=== PATIENT | male | born 1990 ===

== ENCOUNTER 2023-04-12 18:12 | Emergency (ER) | payer BC, SELFPAY ==
[2023-04-12 18:40] VITALS: BP 145/80; PULSE 70; RESP 16; TEMP 36.6; O2SAT 97; BMI 27.9
--- NOTE | 2023-04-12 19:24 | ED.SKABFB ---
HPI - Skin/Abscess/Foreign Bdy General Chief complaint: Skin/Abscess/Foreign Body Stated complaint: stepped on a nail, needs tetanus Time Seen by Provider: 04/12/23 18:45 Source: patient Mode of arrival: ambulatory Limitations: no limitations History of Present Illness HPI narrative: This is a 33-year-old male without significant medical history presenting with puncture wound with jose l nail through shoe with puncture wound to distal aspect of 2nd toe. Happened today prior to arrival. Patient tells me he is not sure when he had his last tetanus shot. Although records state he had in 2019 he tells me he is not sure he actually did. Patient denies fevers, chills, chest pain, shortness of breath, nausea, vomiting, difficulty moving toes, numbness or tingling. Related Data Previous Rx's Medication Instructions Recorded levofloxacin 750 mg tablet 750 mg PO DAILY 7 days #7 tabs 04/12/23 Allergies Allergy/AdvReac Type Severity Reaction Status Date / Time No Known Allergies Allergy Unverified 08/11/20 16:27 Review of Systems Review of Systems: Constitutional : No Weight loss, No Fever, No Chills, No Fatigue, No Malaise ENT/Mouth : No sore throat, No Rhinorrhea Eyes: No Eye Pain, No Swelling, No Redness Cardiovascular : No Chest Pain, No SOB, No Dyspnea on Exertion, No Orthopnea, No Edema, No Palpitations Respiratory : No Cough, No Sputum, No Wheezing Gastrointestinal : No Nausea, No Vomiting, No Diarrhea, No Constipation, No abdominal Pain, No Hematochezia, No Melena Genitourinary : No Dysuria, No Urinary Frequency, No Hematuria, Musculoskeletal : No joint pain, No Myalgias, No Joint Swelling Skin : No Skin Lesions, No rash, + puncture wound Neuro : No Weakness, No Numbness, No Dizziness, No Headache Psych : No Anxiety/Panic, No Depression All other systems reviewed and are negative Yes all other systems are reviewed and are negative [facility] Past Medical History Attestation statement: The following information was validated with the patient. Source: old records reviewed and nursing notes reviewed Physical Exam Vital Signs: Vital Signs: Last Vital Signs Temp 97.9 F 04/12/23 18:40 Pulse 70 04/12/23 18:40 Resp 16 04/12/23 18:40 BP 145/80 H 04/12/23 18:40 Pulse Ox 97 04/12/23 18:40 O2 Del Method Room Air 04/12/23 18:40 BMI result Body Mass Index 27.9 Vital signs stable Appearance: Alert.? Oriented X3.? No acute distress.? Head: Normocephalic, atraumatic, no step-offs or deformities Eyes: Pupils equal, round and reactive to light.? ENT: Pharynx normal.? Neck: Normal inspection.? Neck supple.? CVS: Normal heart rate and rhythm.? Pulses normal.? Respiratory: No respiratory distress.? Breath sounds normal.? Abdomen: Soft and nontender.? Skin: Skin warm and dry.? Normal skin color.? Normal skin turgor.?+ small puncture wound to the left 2nd toe distal aspect on fat pad. +dorsalis pedis, anterior tibialis and posterior tibialis pulses equal bilateral. No footdrop. Ambulating with steady straight gait normal coordination Extremities: No lower extremity edema.? No calf ttp. 5/5 strength to bilateral upper and lower extremities Back: No midline tenderness, no C-spine tenderness, full range of motion, no CVA tenderness bilaterally Neuro: Oriented X 3.? No motor deficit.? No sensory deficit. CN 2-12 intact Course Reevaluation(s) Reevaluation #1: Patient given medication and Boostrix shot therefore he will be discharged home. Time: 19:27 Medical Decision Making Medical Decision Making MDM Narrative: 33-year-old male presents with puncture wound, patient stepped on a jose l nail that went through his shoe and punctured his 2nd toe just prior to arrival Physical exam with puncture wound distal aspect of 2nd left toe. Vascular status intact. Concerns for puncture wound, unlikely cellulitis, necrotizing infection, no signs of threatened limb. Plan will discharge patient home with Levaquin due to puncture wound with jose l nail through a shoe. I did go or black box warnings of Levaquin with patient he verbalizes understanding of tendon rupture. Will give him a tetanus booster as patient is unclear when he really had his last tetanus shot. Differential Diagnosis Differential Diagnoses: The differential diagnosis associated with the presentation includes Concerns for puncture wound, unlikely cellulitis, necrotizing infection, no signs of threatened limb. Admission/Observation Consideration of admission/observation: Escalation of care including admission/observation considered Tests considered The following testing was considered but not selected: Low suspicion for fractures or dislocations. No need for x-ray. Core Measures AMI core measures followed: Yes Measure exclusions: not indicated Discharge Plan Discharge Clinical Impression: Puncture wound Patient Disposition: Home, Self-Care Additional Instructions: Take your medications as prescribed. If you were prescribed antibiotics today, it is important that you take your medication to their entirety, do not skip any doses, do not finish them early. Follow-up with your primary care provider this week. Return to the emergency department with new or worsening symptoms. Such as fevers, chills, chest pain, shortness of breath, nausea, vomiting, dizziness, headache, vision changes, lethargy In case of emergency call 911 Prescription has been sent to [facility] [place] Prescriptions: New levofloxacin 750 mg tablet 750 mg PO DAILY 7 Days Qty: 7 0RF Referrals: Physician,None [Primary Care Provider] - 2 days Stand Alone Forms: Work/School Release
[2023-04-12] MEDS: levoFLOXacin 750 MG TABLET PO (19:32)
[2023-04-12] MEDS: Diphth,Pertus(ACell),Tet Adult 0.5 ML SYRINGE IM (19:32)
== END 2023-04-12 19:43 | disposition home or self-care (01) ==
PROVIDERS: Emergency Provider Emergency Medicine
DX: S91.135A Puncture wound without foreign body of left lesser toe(s) without damage to nail, initial encounter (principal); S90.812A Abrasion, left foot, initial encounter; W45.0XXA Nail entering through skin, initial encounter; Y93.9 Activity, unspecified; Y92.9 Unspecified place or not applicable; Y99.9 Unspecified external cause status; Z23 Encounter for immunization
CPT/HCPCS: 90471; 90715; 99282; 99284